=== PATIENT | male | born 1970 | race Caucasian/White ===

== ENCOUNTER 2019-02-28 10:06 | Inpatient (IN) ==
[2019-02-28 10:40] LABS: Bilirubin,Urine Negative (Negative); Blood,Urine Negative (Negative); Clarity,Urine Clear (Clear); Color,Urine Yellow (Yellow); Glucose,Urine (UA) Normal (Normal); Ketones,Urine Negative (Negative); Leukocyte Esterase,Urine Negative (Negative); Nitrite,Urine Negative (Negative); PH,Urine 6.5 pH Units (5.0-8.0); Protein,Urine Negative (Neg-Trace); Specific Gravity,Urine 1.011 (1.010-1.025); Urobilinogen,Urine Normal (Normal)
[2019-02-28 10:45] LABS: Basophils % 0.1 %; Eosinophils % 0.6 %; Hemoglobin 12.8 g/dL (12.9-16.9); Immature Granulocytes % 0.1 % (0-4); Lymphocytes # 0.6 K/mcL (0.6-4.6); Lymphocytes % 9.1 %; Mean Corpuscular HGB Conc 34.6 g/dL (31.6-35.5); Mean Corpuscular Hemoglobin 30.6 pg (28.0-33.3); Mean Corpuscular Volume 88.5 fL (83.0-100.0); Mean Platelet Volume 9.1 fL (9.4-12.4); Monocytes # 0.5 K/mcL (0.0-1.3); Monocytes % 7.8 %; Neutrophils # 5.7 K/mcL (1.6-8.9); Platelet Count 185 K/mcL (140-400); Red Blood Count 4.18 M/mcL (4.19-5.50); Red Cell Distribution Width 11.8 % (11.5-14.5); Segmented Neutrophils % 82.3 %; White Blood Count 6.9 K/mcL (4.3-11.1)
--- NOTE | 2019-02-28 10:47 | Emergency Department Note ---
Disposition Clinical Impression: Unable to ambulate Phalanx fracture, foot Qualifiers: Encounter type: initial encounter Toe: great toe Fracture type: closed Phalanx: proximal Fracture alignment: nondisplaced Laterality: left Qualified Code(s): S92.415A - Nondisplaced fracture of proximal phalanx of left great toe, initial encounter for closed fracture Metacarpal bone fracture Qualifiers: Encounter type: initial encounter Metacarpal bone: fifth Fracture type: closed Metacarpal location: shaft Fracture alignment: nondisplaced Laterality: left Qualified Code(s): S62.357A - Nondisplaced fracture of shaft of fifth metacarpal bone, left hand, initial encounter for closed fracture Disposition: Admitted As Inpatient Condition: Good Time of Disposition: 12:08 General Adult HPI - General Stated complaint: fall Time Seen by Provider: 02/28/19 10:08 Source: patient, EMS Mode of arrival: EMS Limitations: no limitations Nursing Notes Reviewed: Yes Vital Signs Reviewed: Yes - History of Present Illness HPI Narrative: 49M with DD that reportedly fell down the stairs yesterday when he arrived at his mother's house for a weekend visit. He fell down approximately 12 stairs as his mother found him at the bottom of the stairs. Then this morning he had a seizure while he was on the toilet. He is now complaining of left wrist pain and has some blood around the corner of his left eye. His mother states that it is not unusual for him to have seizures, even though he is on medication to prevent them. She denies any vomiting. He is not very verbal and cannot state whether or not he is nauseated. He can answer "ow" when you palpate something that hurts. Pain Scale: 5 - Related Data Home Medications Medication Instructions Recorded Confirmed Aspirin [Lo-Dose Aspirin EC] 81 mg PO DAILY 11/05/18 02/28/19 Atorvastatin [Lipitor] 40 mg PO DAILY@1600 11/05/18 02/28/19 Brivaracetam [Briviact] 50 mg PO BID 11/05/18 02/28/19 Cannabidiol (Cbd) Extract 10.4 ml PO BID 11/05/18 02/28/19 [Epidiolex] Cholecalciferol (D-3) [Vitamin D] 1 tab PO HS 11/05/18 02/28/19 Clobazam [Onfi] 10 mg PO BID 11/05/18 02/28/19 Diazepam [Diastat Acudial] 1 each RC DAILY PRN MDD 1 11/05/18 02/28/19 Docusate Sodium [Stool Softener] 100 mg PO BID 11/05/18 02/28/19 HydrOXYzine Pamoate [Vistaril] 25 mg PO BID 11/05/18 02/28/19 Lacosamide [Vimpat] 200 mg PO BID 11/05/18 02/28/19 Lisinopril [Zestril] 20 mg PO DAILY 11/05/18 02/28/19 Loratadine [Allergy Relief] 10 mg PO DAILY 11/05/18 02/28/19 Magnet 1 each TP DAILY PRN MDD 1 11/05/18 02/28/19 Metoprolol Succinate [Toprol Xl] 25 mg PO DAILY 11/05/18 02/28/19 OLANZapine [Zyprexa] 15 mg PO 199911/05/18 02/28/19 Perphenazine [Trilafon] 2 mg PO DAILY 11/05/18 02/28/19 Tamsulosin 0.4 mg PO HS 11/05/18 02/28/19 Zonisamide [Zonegran] 400 mg PO 199911/05/18 02/28/19 raNITIdine HCl [Ranitidine HCl] 150 mg PO BID 11/05/18 02/28/19 Calcium Carbonate [Calcium] 500 mg PO DAILY 02/28/19 02/28/19 Montelukast [Singulair] 10 mg PO HS 02/28/19 02/28/19 Multivit with Iron,Hematinic 1 each PO 02/28/19 02/28/19 [[place]] Vitamin E 400 unit PO QAM 02/28/19 02/28/19 Allergies Allergy/AdvReac Type Severity Reaction Status Date / Time codeine Allergy Hives Verified 11/05/18 23:12 phenobarbital Allergy Hives Verified 11/05/18 23:12 IVP DYE Allergy Hives Uncoded 11/05/18 23:12 Limitations: ROS unobtainable due to patients medical condition Past Medical History - Past Medical History Attestation: Yes The following information was validated with the patient. Medical history: Reports: diabetes, GERD, hyperlipidemia, hypertension, seizures, other Surgical history: Reports: other Psychiatric history: Reports: anxiety, bipolar, depression, other - Social History Smoking Status: Never smoker Smokeless Tobacco Status: No Alcohol use: Reports: none Drug use: Reports: none Physical Exam GENERAL: Well developed, well nourished. Non-verbal. In no acute distress. SKIN: Warm and well perfused. Bruising noted over left fifth digit. HEAD: Atraumatic, normocephalic without edema, discoloration or evidence of trauma. Facial bones without deformities or tenderness. EYES: PERRL. No scleral icterus or conjunctival injection. No diplopia. No proptosis or enophthalmos. EARS: Normal appearing pinnae. No hemotympanum. NOSE: No discharge, tenderness, laxity. No nasal septal hematoma. MOUTH: No malocclusion or trismus. Moist mucus membranes without blood. Posterior pharynx without erythema or exudate. NECK: Trachea midline. No discolorations or edema. Neck immobilized in cervical collar. CV: Regular rate and rhythm, Normal s1 and s2. No murmurs, rubs, or gallops. PV: Radial pulses 2+ bilaterally and symmetric. Dorsalis pedis pulses 2+ bilaterally and symmetric. 2+ capillary refill. Left foot edema with intact pulses. CHEST: No abrasions or ecchymosis. Chest symmetric with respirations. No chest wall tenderness. No crepitus. No step offs. Lungs are clear to auscultation bilaterally. No rales, rhonchi, wheezing or stridor. ABDOMEN: No ecchymosis or abrasions. Soft, nondistended, nontender. Bowel tones normoactive. No masses or organomegaly. BACK: No abrasions, skin openings, or ecchymosis. Spine without bony tenderness, no step offs. PELVIC: Pelvis stable, nontender to lateral compression and palpation of sy mphysis pubis. MSK: No gross deformities or discolorations or lesions. Tenderness with passive ROM to left hand and left foot. NEURO: :Pt awake and alert and at mental baseline according to family at bedside. - General General appearance: alert, in no apparent distress Course Vital Signs Temperature 98.0 F 02/28/19 10:14 Pulse Rate 102 02/28/19 10:14 Respiratory Rate 20 02/28/19 10:14 Blood Pressure 156/101 02/28/19 10:14 O2 Sat by Pulse Oximetry 99 02/28/19 10:14 Temperature 98.0 F 02/28/19 10:14 Pulse Rate 102 02/28/19 10:14 Respiratory Rate 20 02/28/19 10:14 Blood Pressure 156/101 02/28/19 10:14 O2 Sat by Pulse Oximetry 99 02/28/19 10:14 Oxygen Delivery Oxygen Delivery Room Air Medical Decision Making - MDM Narrative Medical decision making narrative: 49-year-old male with MRDD it is mostly nonverbal that fell down 12 stairs yesterday and then had a seizure on the toilet this morning and fell off the toilet. He is now complaining of left pain of his wrist with manipulation, and left foot pain when the foot is manipulative. We will obtain imaging. Imaging shows a fracture of the left great toe, nondisplaced. Additionally there appears to be a fracture of the fifth left metacarpal through the proximal phalanx. Patient will be placed in an ulnar gutter splint and a fracture shoe. Patient will get a refill follow-up. Patient is having difficulty ambulating and so will be made nonweightbearing until evaluated by orthopedics. Mother attempted to have the patient sent back to his long term as she has multiple stairs that lead to her home however the long term was unable to accommodate an early return for him. Mother cannot take care of him if he were to return home. Patient not safe to go home at this time. Patient was admitted to the hospitalist Dr. Greenfield who agrees to accept the patient to his service. Results of the workup including any imaging and/or labwork was shared with the family at bedside. Family was given an opportunity to ask questions at bedside and all of their concerns were addressed. Family verbalized understanding and agreement with plan of care. Pt remained stable while in the department. - Medical Records Medical records reviewed: Yes I reviewed the patient's medical records. - Lab Data Lab results reviewed: Yes I reviewed the patient's lab results. Result diagrams: 02/28/19 10:24 02/28/19 10:24 Lab Results 02/28/19 02/28/19 02/28/19 Range/Units 10:24 10:24 10:31 WBC 6.9 (4.3-11.1) K/mcL RBC 4.18 L (4.19-5.50) M/mcL Hgb 12.8 L (12.9-16.9) g/dL Hct 37.0 L (37.5-50.1) % MCV 88.5 (83.0-100.0) fL MCH 30.6 (28.0-33.3) pg MCHC 34.6 (31.6-35.5) g/dL RDW 11.8 (11.5-14.5) % Plt Count 185 (140-400) K/mcL MPV 9.1 L (9.4-12.4) fL Immature Gran % 0.1 (0-4) % Seg Neutrophils % 82.3 % Lymphocytes % 9.1 % Monocytes % 7.8 % Eosinophils % 0.6 % Basophils % 0.1 % Neutrophils # 5.7 (1.6-8.9) K/mcL Lymphocytes # 0.6 (0.6-4.6) K/mcL Monocytes # 0.5 (0.0-1.3) K/mcL Eosinophils # 0.0 (0.0-0.6) K/mcL Basophils # 0.0 (0.0-0.2) K/mcL Sodium 138 (136-145) mEq/L Potassium 3.6 (3.5-5.1) mEq/L Chloride 104 (98-107) mEq/L Carbon Dioxide 25 (23-29) mEq/L BUN 11 (6-20) mg/dL Creatinine 0.90 (0.70-1.30) mg/dL Est GFR ( Amer) > 60 (> 60) Est GFR (Non-Af Amer) > 60 (> 60) BUN/Creatinine Ratio 12 (6-26) Glucose 188 H (70-105) mg/dL Calculated Osmolality 290 (280-300) Calcium 9.4 (8.6-10.3) mg/dL Urine Color Yellow (Yellow) Urine Clarity Clear (Clear) Urine pH 6.5 (5.0-8.0) pH Units Ur Specific [place] 1.011 (1.010-1.025) Urine Protein Negative (Neg-Trace) mg/dL Urine Glucose (UA) Normal (Normal) mg/dL Urine Ketones Negative (Negative) mg/dL Urine Blood Negative (Negative) Urine Nitrite Negative (Negative) Urine Bilirubin Negative (Negative) Urine Urobilinogen Normal (Normal) mg/dL Ur Leukocyte Esterase Negative (Negative) Ur Culture Indicated? NO (NO) - Radiology Data Radiology results reviewed: Yes I reviewed the patient's radiology results. Cervical Spine CT 02/28/19 10:10 IMPRESSION: No acute osseous abnormality of the cervical spine. D/ / Tariq Person MD / Tariq Person MD Interpreting Provider: Tariq Person MD Chest X-Ray 02/28/19 10:10 IMPRESSION: No acute process. D/ / 02/28/2019 11:11:56 Tariq Person MD / earnold Interpreting Provider: Tariq Person MD Head CT 02/28/19 10:10 IMPRESSION: No acute intracranial abnormality. D/ / Tariq Person MD / Tariq Person MD Interpreting Provider: Tariq Person MD Pelvis X-Ray 02/28/19 10:10 IMPRESSION: No acute osseous abnormality. D/ / Tariq Person MD / Tariq Person MD Interpreting Provider: Tariq Person MD Ankle X-Ray 02/28/19 10:12 IMPRESSION: Left ankle: 1. No acute osseous abnormality. 2. Soft tissue swelling, more pronounced laterally. Left foot: 1. Under subtle lucency through the 1st proximal phalanx suspicious for nondisplaced fracture. 2. Dorsal foot soft tissue swelling. D/ / Rubio Hoffman MD / Rubio Hoffman MD Interpreting Provider: Rubio Hoffman MD Foot X-Ray 02/28/19 10:12 IMPRESSION: Left ankle: 1. No acute osseous abnormality. 2. Soft tissue swelling, more pronounced laterally. Left foot: 1. Under subtle lucency through the 1st proximal phalanx suspicious for nondisplaced fracture. 2. Dorsal foot soft tissue swelling. D/ / Rubio Hoffman MD / Rubio Hoffman MD Interpreting Provider: Rubio Hoffman MD Forearm X-Ray 02/28/19 10:12 IMPRESSION: No acute osseous abnormality. D/ / Tariq Person MD / Tariq Person MD Interpreting Provider: Tariq Person MD Hand X-Ray 02/28/19 10:12 IMPRESSION: No acute fracture or dislocation. Suspected vascular channel, 5th mid metacarpal diaphysis. D/ / 02/28/2019 11:12:53 Tariq Person MD / earnoyaakov Interpreting Provider: Tariq Person MD Wrist X-Ray 02/28/19 10:12 IMPRESSION: No acute fracture or dislocation. D/ / 02/28/2019 11:13:31 Tariq Person MD / earnold Interpreting Provider: Tariq Person MD Face CT 02/28/19 10:13 IMPRESSION: Left periorbital and left facial soft tissue contusion. No maxillofacial fracture or dislocation. D/ / Rubio Hoffman MD / Rubio Hoffman MD Interpreting Provider: Rubio Hoffman MD Attestation Statement - Attestation Attestation: I, Feroz Blount, examined this patient and my medical decision-making was reviewed with the WINEMAKER/PA/Advanced Practice Nurse/Resident Physician. I agree with the documented findings, disposition and treatment plan as described except to the extent set forth below. 49-year-old male presents emergency Department with concerns of a fall at home. Patient is usually a long term resident, he said spends the weekends with his mother however. Last night, the patient was walking into his arms house and fell down multiple stairs. He has had difficulty ambulating since that time. He is brought in for further care and evaluation. Mother states he has a long history of seizures and she is uncertain if he may have had a seizure prior to the fall. Patient has a difficult time giving history regarding his case and presentation secondary to his baseline mental status. CT of the head did not show evidence of intracranial hemorrhage or fracture. Patient has possible fractures of the left foot which has increased edema to the left ankle on exam compared to the right. Patient also has tenderness to palpation of the left hand. X-ray shows what could be a nutritional foramen however with the patient's pain he was placed into a on a gutter splint for further evaluation. He is unable to go home with his mother because of the stairs and he is unable to go to the long term secondary to a lack of workers being a holiday weekend. Return to see if they could call somebody and however there is nobody available. Patient will be admitted for further care and observation.
[2019-02-28 10:53] LABS: BUN/Creatinine Ratio 12 (6-26); Blood Urea Nitrogen 11 mg/dL (6-20); Calcium 9.4 mg/dL (8.6-10.3); Carbon Dioxide 25 mEq/L (23-29); Chloride 104 mEq/L (98-107); Glucose 188 mg/dL (70-105); Osmolality,Calculated 290 (280-300); Potassium 3.6 mEq/L (3.5-5.1); Sodium 138 mEq/L (136-145); eGFR For African Americans > 60 (> 60); eGFR For Non-African Americans > 60 (> 60)
[2019-02-28] MEDS ORDERED: Ondansetron 4 MG/2 ML VIAL IVP PRN (14:10)
[2019-02-28] MEDS ORDERED: traMADol 50 MG TABLET PO PRN (14:10)
[2019-02-28] MEDS ORDERED: Naloxone 0.4 MG/ML INJ IVP PRN (14:10)
--- NOTE | 2019-02-28 14:21 | Internal Med History&Physical ---
Date of Encounter: 02/28/19 Time of Encounter: 13:45 Internal Medicine - H&P: HPI Admitted From: Emergency Dept Plans for Post Hospital Care: Transfer Inp Rehab Fac History of present illness: Mr. Sandra is a 49 year old male with a history of seizures since age 5 status post vagal nerve stimulator, diabetes, hypertension and GERD who was brought into the ED to be evaluated status post fall by his mother. His mother Dayanara temporary status [phone] stated his guardian is his sister Tracy she can be arranged at [phone]. Dayanara the patient's mother stated that he lives in a prison and come home to her apartment on the weekends. She stated that when yesterday he came home for the routine weekend stay, she was talking to the prison personnel who dropped off the patient while Mr. Sandra proceeded along to her downstairs apartment. It appears the patient fell while going down the steps of about 12. The patient cannot really provide any history regarding his fall given that he is years of persistent seizures since age 5 has made the patient developmentally delayed. He could not call from any prodrome prior to the fall, his mom did not witness the fall but she maintains that it was a mechanical fall. She also stated that patient of late has been having sudden falls which she described as he was going down and attributes this to him having frequent seizures. She stated the patient typically has generalized tonic- clonic seizures and that his medications have been constantly been adjusted since started and recently was started on CBD oil which according to the mother has reduced the frequency of his seizures but also now the patient is having small atypical seizures of being atonic. When asked with this frequency of seizures and new seizures if his neuroleptic medications have been maximized the patient's mother stated that he is established with the [facility] and that we should not attempt to adjust his antiseizure meds during this hospitalization. She wanted to let us know that he would have seizures during this hospital stay and she wanted us to use a magnet that came with his vagal n erve stimulator to terminate his seizures. Discussed at length with the patient's mother that we would not feel comfortable manipulating his vagal nerve stimulator since we do not have expertise but rather if he has seizures we will treat him accordingly with medications for active seizures. She was reluctant as such discussed with Mrs. Dayanara that we could as well transferred the patient still [facility] since he is already established there, she declined stating that she cannot drive to [place] and will still like to spend the weekend with her son as such she said not to transfer to [place]. Overall patient had several imaging modality workup at the ED including a face CT, CT of the cervical spine, chest x-ray radiograph of left arm and wrist radiograph of the left foot ankle and pelvic x-ray. There is concern is of possible fracture of the left great toe nondisplaced as well as the 5th left metacarpal through the proximal phalanx. Past Med Surg Social Fam HX - Past Medical History Medical history: diabetes, GERD, hyperlipidemia, hypertension, seizures, other Additional medical history: developmental delayed. sleep apnea, psoriasis Psychiatric history: anxiety, bipolar, depression, other - Past Surgical History Surgical History: other Additional surgical history: vagal nerver stimulator - Social History Smoking Status: Never smoker Smokeless Tobacco Status: No Alcohol use: none Drug use: none Internal Medicine - H&P: Meds Aspirin [Lo-Dose Aspirin EC] 81 mg PO DAILY 11/05/18 [History] Atorvastatin [Lipitor] 40 mg PO HS 11/05/18 [History] Brivaracetam [Briviact] 50 mg PO BID 11/05/18 [History] Cannabidiol (Cbd) Extract [Epidiolex] 10.4 ml PO BID 11/05/18 [History] Cholecalciferol (D-3) [Vitamin D] 1 tab PO DAILY 11/05/18 [History] Clobazam [Onfi] 20 mg PO DAILY 11/05/18 [History] Diazepam [Diastat Acudial] 1 each RC DAILY PRN MDD 1 11/05/18 [History] Docusate Sodium [Stool Softener] 100 mg PO BID 11/05/18 [History] HydrOXYzine Pamoate [Vistaril] 25 mg PO BID 11/05/18 [History] Lacosamide [Vimpat] 300 mg PO BID 11/05/18 [History] Lisinopril [Zestril] 20 mg PO DAILY 11/05/18 [History] Loratadine [Allergy Relief] 10 mg PO DAILY 11/05/18 [History] Magnet 1 each TP DAILY PRN MDD 1 11/05/18 [History] Metoprolol Succinate [Toprol Xl] 25 mg PO DAILY 11/05/18 [History] OLANZapine [Zyprexa] 15 mg PO 199911/05/18 [History] Perphenazine [Trilafon] 2 mg PO DAILY 11/05/18 [History] Tamsulosin 0.4 mg PO DAILY 11/05/18 [History] Thera-M 1 tab PO DAILY 11/05/18 [History] Zonisamide [Zonegran] 400 mg PO 199911/05/18 [History] raNITIdine HCl [Ranitidine HCl] 150 mg PO BID 11/05/18 [History] Lidocaine Patch [Lidoderm 5% patch] 1 each TP DAILY #10 adh..patch 12/29/18 [Rx] Medicinal Marijuana 02/28/19 [History] Allergy/AdvReac Type Severity Reaction Status Date / Time codeine Allergy Hives Verified 11/05/18 23:12 phenobarbital Allergy Hives Verified 11/05/18 23:12 IVP DYE Allergy Hives Uncoded 11/05/18 23:12 All Systems PM: A 10-system review of systems was performed and is negative for pertinent findings except as documented above in the HPI. Review of systems: GENERAL: Denies fever, chills, fatigue or night sweats. DERMATOLOGIC: Denies itch, rash or lesions HEENT: Denies headache, blurriness, diplopia or decreased visual acuity, ear pain, tinnitus, rhinorrhea, sinus tenderness or sore throat RESPIRATORY: Denies SOB, cough, hemoptysis or pleuritic chest pain CARDIOVASCULAR: Denies chest pain, LE edema, palpitation or syncope GASTRO INTESTINAL: Denies cramps, nausea/vomiting, diarrhea or constipation, melena MUSCULOSKELATAL: Reports left arm and leg pain PSYCH: Denies worsening anxiety, or depression NEURO: Denies vertigo, dizziness, or ataxia . Reports a history of seizures GENITURINARY: Denies dysuria, nocturia or urinary incontinence - Constitutional Vitals: Temp Pulse Resp BP Pulse Ox 98.0 F 102 20 156/101 99 02/28/19 10:14 02/28/19 10:14 02/28/19 10:14 02/28/19 10:14 02/28/19 10:14 Exam: GENERAL: Somewhat somnolent male laying comfortably in the ED bed mother at bedside SKIN: No skin lesions or rashes, non-jaundiced, held surgical scar noted i nferior to the left clavicle-palpable vagal stimulator EYES: EOMI, PERRLA, no sclera icterus, slight developing orbital ecchymosis noted the left eyelid HENT: Macrocephaly noted, frontal and maxillary sinus non-tender, normal hearing, oropharynx and mucosa dry but without any exudates NECK: No cervical lymphadenopathy, trachea midline, thyroid is palpable does not appear enlarged LUNGS: vesicular breath sounds, somewhat diminished clear to auscultation, no wheeze, rhonchi, rales or crackles. Non labored respirations HEART: Normal rate and rhythm, no murmurs or rubs ABDOMEN: Obese soft, non-tender, non-distended, bowel sounds x 4 normoactive EXTRMITIES: Left arm wrapped in Herb, left lower extremity unna amaya noted, NEURO: Speech and comprehension appears intact. PSYCH: Cooperative, non- anxious or irritable, mood and affect is appropriate Internal Med - H&P Results - Labs CBC & Chem 7: 02/28/19 10:24 02/28/19 10:24 Labs: Short CBC 02/28/19 Range/Units 10:24 WBC 6.9 (4.3-11.1) K/mcL Hgb 12.8 L (12.9-16.9) g/dL Hct 37.0 L (37.5-50.1) % Plt Count 185 (140-400) K/mcL Neutrophils # 5.7 (1.6-8.9) K/mcL BMP 02/28/19 10:24 Sodium 138 Potassium 3.6 Chloride 104 Carbon Dioxide 25 BUN 11 Creatinine 0.90 Glucose 188 H Calcium 9.4 Urine 02/28/19 Range/Units 10:31 Urine Color Yellow (Yellow) Urine Clarity Clear (Clear) Urine pH 6.5 (5.0-8.0) pH Units Ur Specific [place] 1.011 (1.010-1.025) Urine Protein Negative (Neg-Trace) mg/dL Urine Glucose (UA) Normal (Normal) mg/dL - Impressions ITS Impressions Cervical Spine CT 02/28/19 10:10 IMPRESSION: No acute osseous abnormality of the cervical spine. D/ / Tariq Person MD / Tariq Person MD Interpreting Provider: Tariq Person MD Chest X-Ray 02/28/19 10:10 IMPRESSION: No acute process. D/ / 02/28/2019 11:11:56 Tariq Person MD / earnold Interpreting Provider: Tariq Person MD Head CT 02/28/19 10:10 IMPRESSION: No acute intracranial abnormality. D/ / Tariq Person MD / Tariq Person MD Interpreting Provider: Tariq Person MD Pelvis X-Ray 02/28/19 10:10 IMPRESSION: No acute osseous abnormality. D/ / Tariq Person MD / Tariq Person MD Interpreting Provider: Tariq Person MD Ankle X-Ray 02/28/19 10:12 IMPRESSION: Left ankle: 1. No acute osseous abnormality. 2. Soft tissue swelling, more pronounced laterally. Left foot: 1. Under subtle lucency through the 1st proximal phalanx suspicious for nondisplaced fracture. 2. Dorsal foot soft tissue swelling. D/ / Rubio Hoffman MD / Rubio Hoffman MD Interpreting Provider: Rubio Hoffman MD Foot X-Ray 02/28/19 10:12 IMPRESSION: Left ankle: 1. No acute osseous abnormality. 2. Soft tissue swelling, more pronounced laterally. Left foot: 1. Under subtle lucency through the 1st proximal phalanx suspicious for nondisplaced fracture. 2. Dorsal foot soft tissue swelling. D/ / Rubio Hoffman MD / Rubio Hoffman MD Interpreting Provider: Rubio Hoffman MD Forearm X-Ray 02/28/19 10:12 IMPRESSION: No acute osseous abnormality. D/ / Tariq Person MD / Tariq Person MD Interpreting Provider: Tariq Person MD Hand X-Ray 02/28/19 10:12 IMPRESSION: No acute fracture or dislocation. Suspected vascular channel, 5th mid metacarpal diaphysis. D/ / 02/28/2019 11:12:53 Tariq Person MD / malachi Interpreting Provider: Tariq Person MD Wrist X-Ray 02/28/19 10:12 IMPRESSION: No acute fracture or dislocation. D/ / 02/28/2019 11:13:31 Tariq Person MD / malachi Interpreting Provider: Tariq Person MD Face CT 02/28/19 10:13 IMPRESSION: Left periorbital and left facial soft tissue contusion. No maxillofacial fracture or dislocation. D/ / Rubio Hoffman MD / Rubio Hoffman MD Interpreting Provider: Rubio Hoffman MD - Assessment and Plan (1) History of fall Current Visit: Yes Status: Acute Assessment and plan: Etiology of his fall still remains unclear, mother claims it was a mechanical fall but she has a stated that he has been having what she describes as the patient becoming atonic and frequent fall since started on CBD oil, patient did suffer some contusion to his face evident on CT of the face, CT of the cervical spine was unremarkable. No head CT was done at the ED will send patient for a head CT given that an MRI cannot be done given his vagal nerve stimulator to help delineate any intracranial abnormality (2) Phalanx fracture, foot Current Visit: Yes Status: Acute Assessment and plan: Orthopedic consult was ordered at the ED patient has an unna boot, patient has quite a large frame would likely need a 2 person assist if he is nonweightbearing as such discussed with his mother that he might need placement at an ECF for rehabilitation and nursing needs Qualifiers: Encounter type: initial encounter Toe: great toe Fracture type: closed Phalanx: proximal Fracture alignment: nondisplaced Laterality: left Qualified Code(s): S92.415A - Nondisplaced fracture of proximal phalanx of left great toe, initial encounter for closed fracture (3) Generalized seizures Current Visit: Yes Status: Acute Assessment and plan: Patient with seizures since age 5 continues to have seizures while on antiseizure medication per his mom. She stated that his medications have been tweaked over the years and that he recently added CBD on oil and patient has reverted from tonic-clonic seizures to now what she describes as atonic seizur es-patient going limp and slumped to the ground. She maintains that we should not adjust his seizure medications given at his already established at [facility] but she also does not want him transferred to [place] because she cannot drive to [place] in [place] but would still like to spend the weekend with her son. She wants the staff here to know that during his hospital stay he would have seizures as such she wanted to bring his magnets for also manipulative his vagal nerve stimulator. When she was told that this was not feasible given that the staff will not be comfortable manipulative his vagal nerve stimulator and that we should try to transfer [place] she said no. D iscussed with Dayanara the patient's mom will place him on seizure protocol and that will treat any active seizures with lorazepam and Keppra IV on interim she was reluctant but agreed to treatment plan. We will consult neurology for input (4) Diabetes Current Visit: Yes Status: Acute Assessment and plan: Although he is not on any diabetic medication review of his problem list does have diabetes we will obtain A1c and place on insulin per protocol Qualifiers: Diabetes mellitus type: type 2 Diabetes mellitus intermediate card tender insulin use: without fdc use Diabetes mellitus complication status: without complication Qualified Code(s): E11.9 - Type 2 diabetes mellitus without complications (5) Hypertension Current Visit: Yes Status: Acute Assessment and plan: We will continue lisinopril and Toprol Qualifiers: Hypertension type: essential hypertension Qualified Code(s): I10 - Essential (primary) hypertension (6) GERD (gastroesophageal reflux disease) Current Visit: Yes Status: Acute Assessment and plan: Continue ranitidine Qualifiers: Esophagitis presence: esophagitis presence not specified Qualified Code(s): K21.9 - Gastro-esophageal reflux disease without esophagitis (7) DVT prophylaxis Current Visit: Yes Status: Acute Assessment and plan: Heparin per protocol - Time Spent With Patient Total time spent is greater than 50% in coordination of care (as documented) at patient's floor/unit and/or counseling patient:
[2019-02-28] MEDS ORDERED: *HR* Dextrose 50 % in Water (Syg) 50 ML SYRINGE IVP PRN (14:23)
[2019-02-28] MEDS ORDERED: D5% in Water 1,000 ML IVC PRN (14:23)
[2019-02-28] MEDS ORDERED: Dextrose Gel 15 GM/37.5 ML TUBE PO PRN ×2 (14:23)
[2019-02-28] MEDS: *HR* OxyCODONE Immed Rel 5 MG TABLET PO PRN ×2 (14:40→23:43)
[2019-02-28] MEDS ORDERED: *HR* LORazepam 2 MG/ML VIAL IVP PRN (15:15)
[2019-02-28] MEDS: Insulin LISPRO 300 UNITS/3 ML VIAL SQ SCH ×2 (17:38→17:39)
[2019-02-28] MEDS ORDERED: Insulin DETEMIR 100 UNIT/ML X5UNITS SQ SCH (21:00)
[2019-02-28] MEDS: OLANZapine 10 MG TAB.RAPDIS PO SCH (22:14)
[2019-02-28] MEDS: CANNABIDIOL PO SCH (22:14)
[2019-02-28] MEDS: *HR* Heparin 5,000 UNIT/ML VIAL SQ SCH (22:15)
[2019-02-28] MEDS: Cholecalciferol (D-3) 1,000 UNIT (25MCG) TABLET PO SCH (22:15)
[2019-02-28] MEDS: hydrOXYzine pamoate 25 MG CAPSULE PO SCH (22:15)
[2019-02-28] MEDS: BRIVARACETAM 50 MG PO SCH (22:16)
[2019-02-28] MEDS: CLOBAZAM 10 MG PO SCH (22:16)
[2019-03-01 05:50] LABS: Basophils % 0.3 %; Eosinophils # 0.2 K/mcL (0.0-0.6); Eosinophils % 3.3 %; Hematocrit 36.8 % (37.5-50.1); Hemoglobin 12.5 g/dL (12.9-16.9); Immature Granulocytes % 0.3 % (0-4); Lymphocytes # 1.3 K/mcL (0.6-4.6); Lymphocytes % 21.7 %; Mean Corpuscular Volume 88.5 fL (83.0-100.0); Mean Platelet Volume 9.3 fL (9.4-12.4); Monocytes # 0.8 K/mcL (0.0-1.3); Monocytes % 13.7 %; Neutrophils # 3.7 K/mcL (1.6-8.9); Platelet Count 172 K/mcL (140-400); Red Blood Count 4.16 M/mcL (4.19-5.50); Red Cell Distribution Width 11.9 % (11.5-14.5); Segmented Neutrophils % 60.7 %; White Blood Count 6.1 K/mcL (4.3-11.1)
[2019-03-01 06:13] LABS: BUN/Creatinine Ratio 11 (6-26); Blood Urea Nitrogen 12 mg/dL (6-20); Calcium 9.5 mg/dL (8.6-10.3); Carbon Dioxide 21 mEq/L (23-29); Chloride 106 mEq/L (98-107); Glucose 106 mg/dL (70-105); Magnesium 1.9 mg/dL (1.6-2.6); Osmolality,Calculated 286 (280-300); Potassium 3.8 mEq/L (3.5-5.1); Sodium 138 mEq/L (136-145); eGFR For African Americans > 60 (> 60); eGFR For Non-African Americans > 60 (> 60)
[2019-03-01] MEDS: *HR* Heparin 5,000 UNIT/ML VIAL SQ SCH ×3 (06:18→21:15)
[2019-03-01 06:22] LABS: Estimated Average Glucose 105 mg/dl
[2019-03-01 06:25] LABS: Thyroid Stimulating Hormone 2.239 mcIU/mL (0.340-5.600)
[2019-03-01] MEDS: Insulin LISPRO 300 UNITS/3 ML VIAL SQ SCH ×6 (09:53→16:56)
[2019-03-01] MEDS: Vitamin E 200 UNIT (90MG) CAPSULE PO SCH (09:54)
[2019-03-01] MEDS: Metoprolol XL (24 HR) Succ 25 MG TAB.ER.24H PO SCH (09:55)
[2019-03-01] MEDS: Aspirin Enteric Coated 81 MG Tablet PO SCH (09:55)
[2019-03-01] MEDS: Perphenazine 2 MG TABLET PO SCH (09:55)
[2019-03-01] MEDS: Loratadine 10 MG TABLET PO SCH (09:55)
[2019-03-01] MEDS: hydrOXYzine pamoate 25 MG CAPSULE PO SCH ×2 (09:55→21:14)
[2019-03-01] MEDS: Lisinopril 20 MG TABLET PO SCH (09:55)
[2019-03-01] MEDS: BRIVARACETAM 50 MG PO SCH ×2 (09:56→21:15)
[2019-03-01] MEDS: CLOBAZAM 10 MG PO SCH ×2 (09:56→21:15)
[2019-03-01] MEDS: CANNABIDIOL PO SCH ×2 (09:57→21:00)
[2019-03-01] MEDS: *HR* OxyCODONE Immed Rel 5 MG TABLET PO PRN (10:31)
--- NOTE | 2019-03-01 10:45 | Neurology - Consult Note ---
Date of Encounter: 03/01/19 Time of Encounter: 10:36 Assessment and Plan (1) Catalino-Gastaut syndrome, intractable, without status epilepticus Current Visit: Yes Status: Acute Patient with a known history of Independence-Gastaut syndrome, status post vagus nerve stimulation placement currently on multiple antiepileptic agents including Vimpat, Keppra, Clobazam, as well as CBD oil. Patient continues to have breakthrough seizures especially atonic seizures resulting in frequent falling. This may be related to the recent addition of CBD oil, for which adjustment of dosage of the medication may be needed. This would be best accomplished with his primary neurologist at [facility]. At this time, would recommend continuing medical and supportive care and observation and treat seizures on as-needed basis. Patient may not be able to get CBD oil treatment here at [facility]. Treatment plan discussed with the elpidio boyer's mother and all questions answered. History of Present Illness Chief complaint: fall HPI: Mr. Sandra is a 49 year old male with past medical history significant for Independence- Gastaut syndrome, MRDD, BPH, hypertension, bipolar disorder, GERD, status post vagus nerve stimulation placement who developed a fall at home. Neurology was consulted due to the patient's history of intractable epilepsy, status post vagus nerve stimulation placement. Patient is interviewed in the presence of his mother. Patient has MRDD and history of Independence-Gastaut syndrome. Patient has a history of intractable epilepsy and eventually had vagus nerve stimulation placement placed. Patient has been evaluated and treated with his primary neurologist at [facility]. Patient has been taking multiple antiepileptic agents, including Vimpat, Keppra, Clobazam. Per his mother, patient used to have a mixed type of seizures include generalized tonic-clonic seizure, partial seizures as well as atonic seizures. Mother states that over t he last 1 year the patient was tried on CBD oil for the treatment of Independence Gastaut syndrome and during the process of finding the right dosage of CBD oil the patient was initially withdrawn some of his antiepileptic agents therefore there was a time that his seizures were temporarily worsened. Per his mother, he started having other type of seizures including atonic seizures that resulting in frequent falling. Mother states that the patient since to be doing better after started taking a smaller dose of CBD oil, for which the dye reaction of usage is still unknown. Otherwise the patient is hemodynamically stable and he is here essentially for observation. It is recommended that he should be treated as needed basis for breakthrough seizures. Discussed with the mother that we would not change his antiepileptic therapy while in the hospital. Patient's initial CT of the head reviewed and showed no acute intracranial abnormality. Past Med Surg Social Fam HX - Past Medical History Medical history: diabetes, GERD, hyperlipidemia, hypertension, seizures, other Additional medical history: developmental delayed. sleep apnea, psoriasis Psychiatric history: anxiety, bipolar, depression, other - Past Surgical History Surgical History: other Additional surgical history: vagal nerver stimulator - Social History Smoking Status: Never smoker Smokeless Tobacco Status: No Alcohol use: none Drug use: marijuana - Family History Mother Hx Family Cardiac Disorders: Yes Medications and Allergies Aspirin [Lo-Dose Aspirin EC] 81 mg PO DAILY 11/05/18 [History] Atorvastatin [Lipitor] 40 mg PO DAILY@1600 11/05/18 [History] Brivaracetam [Briviact] 50 mg PO BID 11/05/18 [History] Cannabidiol (Cbd) Extract [Epidiolex] 10.4 ml PO BID 11/05/18 [History] Cholecalciferol (D-3) [Vitamin D] 1 tab PO HS 11/05/18 [History] Clobazam [Onfi] 10 mg PO BID 11/05/18 [History] Diazepam [Diastat Acudial] 1 each RC DAILY PRN MDD 1 11/05/18 [History] Docusate Sodium [Stool Softener] 100 mg PO BID 11/05/18 [History] HydrOXYzine Pamoate [Vistaril] 25 mg PO BID 11/05/18 [History] Lacosamide [Vimpat] 200 mg PO BID 11/05/18 [History] Lisinopril [Zestril] 20 mg PO DAILY 11/05/18 [History] Loratadine [Allergy Relief] 10 mg PO DAILY 11/05/18 [History] Magnet 1 each TP DAILY PRN MDD 1 11/05/18 [History] Metoprolol Succinate [Toprol Xl] 25 mg PO DAILY 11/05/18 [History] OLANZapine [Zyprexa] 15 mg PO 2000 11/05/18 [History] Perphenazine [Trilafon] 2 mg PO DAILY 11/05/18 [History] Tamsulosin 0.4 mg PO HS 11/05/18 [History] Zonisamide [Zonegran] 400 mg PO 199911/05/18 [History] raNITIdine HCl [Ranitidine HCl] 150 mg PO BID 11/05/18 [History] Calcium Carbonate [Calcium] 500 mg PO DAILY 02/28/19 [History] Montelukast [Singulair] 10 mg PO HS 02/28/19 [History] Multivit with Iron,Hematinic [[place]] 1 each PO 02/28/19 [History] Vitamin E 400 unit PO QAM 02/28/19 [History] Allergy/AdvReac Type Severity Reaction Status Date / Time codeine Allergy Hives Verified 11/05/18 23:12 phenobarbital Allergy Hives Verified 11/05/18 23:12 IVP DYE Allergy Hives Uncoded 11/05/18 23:12 All Systems: The remainder of the systems were reviewed and are negative - Constitutional Constitutional ROS IM: as per HPI - Nose, Mouth, Throat Nose, mouth and throat: abnormal hearing (no) - Cardiovascular Cardiovascular ROS IM: chest pain (no), claudication (no) - Respiratory Respiratory IM: cough (no), hemoptysis (no) - Gastrointestinal Gastrointestinal: abdominal pain (no) - Genitourinary Genitourinary ROS: difficulty voiding (yes) - Musculoskeletal Musculoskeletal ROS IM: abnormal gait (yes) - Integumentary Integumentary IM: acne (no), alopecia (no), bleeding lesions (no) - Neurological Neurological ROS: abnormal gait, abnormal speech (yes), frequent falls (yes) Physical Examination - Vital Signs Vital Signs: Initial Vital Signs Temp Pulse Resp BP Pulse Ox 98.0 F 102 20 156/101 99 02/28/19 10:14 02/28/19 10:14 02/28/19 10:14 02/28/19 10:14 02/28/19 10:14 - Constitutional General appearance: chronically ill - Neurologic Sensorimotor examination: other (Unable to assess) Detailed motor examination: grossly full strength in all extremities Detailed sensory examination: other (Unable to assess) Posture: other (None) Reflex and gait examination: other (Gait not assessed) Reflexes: Biceps: 2+, Triceps: 2+, Brachioradialis: 2+, Patella: 2+, Achilles: 2+ Mental Status Examination: awake, alert, opens eyes to voice, opens eyes to noxious stimulation, makes eye contact, follows simple commands, inattentive Cranial nerve examination: PERRL, EOMI, visual orozco intact (Unable to assess), corneal reflexes brisk symmetrically, sensory to face intact, mastication intact, no facial asymmetry is present, no dysarthria (Patient is mute), hearing is intact symmetrically, soft palate elevates bilaterally upon phonation (Unable to assess), gag reflex intact, flexes SCM and trapezius muscles symmetrically with full power (Unable to assess), tongue protrudes midline (Unable to assess) Results - Laboratory Findings CBC and BMP: 03/01/19 05:39 03/01/19 05:39 Abnormal lab findings: Abnormal lab results RBC 4.16 M/mcL (4.19-5.50) L 03/01/19 05:39 Hgb 12.5 g/dL (12.9-16.9) L 03/01/19 05:39 Hct 36.8 % (37.5-50.1) L 03/01/19 05:39 MPV 9.3 fL (9.4-12.4) L 03/01/19 05:39 Carbon Dioxide 21 mEq/L (23-29) L 03/01/19 05:39 Glucose 106 mg/dL (70-105) H 03/01/19 05:39 POC Glucose 104 mg/dL (70-99) H 02/28/19 19:24 - Diagnostic Findings Additional findings: CT OF THE HEAD WITHOUT CONTRAST 02/28/2019 11:14 am TECHNIQUE: CT of the head was performed without the administration of intravenous contrast. Dose modulation, iterative reconstruction, and/or weight based adjustment of the mA/kV was utilized to reduce the radiation dose to as low as reasonably achievable. COMPARISON: 11/05/2018 HISTORY: ORDERING SYSTEM PROVIDED HISTORY: trauma Initial examination. Injury with pain. Status post fall. FINDINGS: BRAIN/VENTRICLES: There is no acute intracranial hemorrhage, mass effect or midline shift. No abnormal extra-axial fluid collection. The cristina-white differentiation is maintained without evidence of an acute infarct. There is no evidence of hydrocephalus. ORBITS: The visualized portion of the orbits demonstrate no acute abnormality. SINUSES: The visualized paranasal sinuses and mastoid air cells demonstrate no acute abnormality. SOFT TISSUES/SKULL: No acute abnormality of the visualized skull or soft tissues. CT/CT head/brain wo con IMPRESSION: No acute intracranial abnormality. D/ / Tariq Person MD / Tariq Person MD Interpreting Provider: Tariq Person MD OF THE CERVICAL SPINE WITHOUT CONTRAST 02/28/2019 11:14 am TECHNIQUE: CT of the cervical spine was performed without the administration of intravenous contrast. Multiplanar reformatted images are provided for review. Dose modulation, iterative reconstruction, and/or weight based adjustment of the mA/kV was utilized to reduce the radiation dose to as low as reasonably achievable. COMPARISON: 11/05/2018 HISTORY: ORDERING SYSTEM PROVIDED HISTORY: trauma Initial exam. FINDINGS: BONES/ALIGNMENT: There is no evidence of an acute cervical spine fracture. There is normal alignment of the cervical spine. DEGENERATIVE CHANGES: No significant degenerative changes. SOFT TISSUES: There is no prevertebral soft tissue swelling. CT/CT cervical spine wo con IMPRESSION: No acute osseous abnormality of the cervical spine. D/ / Tariq Person MD / Tariq Person MD Interpreting Provider: Tariq Person MD Consult Discharge Plan - Plan Referrals: Santa Niño MD [Primary Care Provider] -
--- NOTE | 2019-03-01 20:28 | Internal Med Progress Note ---
Hospitalist Progress Note - Encounter Date of Encounter: 03/01/19 Time of Encounter: 11:00 - Subjective Interval History: Mr Sandra was evaluated by the in-house neurologist. No documented seizures activity overnight. His mother was quite upset and tearful and frustrated because the patient could not receive the CBD oil. She was also concerned that he was hypersomnolent which she attributed to the pain medication but according to his nurse she was also upset while he was moaning in pain. Discussed again the treatment plan with the patient's mother stated that we could transfer him to [facility] since he is already established that she declined became tearful stated she has no means of transportation that had daughter took the only vehicle and she and have family went to [place] for the weekend. She was also worried about his urine output however the staff his bladder scan was negative - Exam Vitals: Temp Pulse Resp BP Pulse Ox 100.3 F H 94 16 127/81 95 03/01/19 19:45 03/01/19 19:45 03/01/19 19:45 03/01/19 19:45 03/01/19 19:45 Exam: GENERAL: Somewhat somnolent male, responds to questions somewhat but this is baseline mother at bedside SKIN: [place] warm acyanotic not jaundice HEART: RRR, no murmurs LUNGS: CTA no wheeze or crackles, overall non labored ABDOMEN; Soft, non tender or distended, BS x 4 normactive EXT: No LE edema, Pedal pulses 1+, radial pulses 2+ PSYCH: Mood and affect is appropriate - Assessment and Plan (1) Diabetes Current Visit: Yes Status: Acute Assessment and Plan: Although he is not on any diabetic medication review of his problem list does have diabetes we will obtain A1c 5.3. Patient is not diabetic we will discontinue insulin protocol (2) History of fall Current Visit: Yes Status: Acute Assessment and Plan: Etiology of his fall still remains unclear, mother claims it was a mechanical fall but she has a stated that he has been having what she describes as the patient becoming atonic and frequent fall since started on CBD oil, patient did suffer some contusion to his face evident on CT of the face, CT of the cervical spine was unremarkable. No head CT was done at the ED will send patient for a head CT given that an MRI cannot be done given his vagal nerve stimulator to help delineate any intracranial abnormality (3) Phalanx fracture, foot Current Visit: Yes Status: Acute Assessment and Plan: Orthopedic consult was ordered at the ED patient has an unna boot, patient has quite a large frame would likely need a 2 person assist if he is nonweightbearing as such discussed with his mother that he might need placement at an ECF for rehabilitation and nursing needs (4) Generalized seizures Current Visit: Yes Status: Acute Assessment and Plan: He was seen by the neurologist -history of Catalino-Gastaut syndrome recommended current management, appreciate neurology input Patient with seizures since age 5 continues to have seizures while on antiseizure medication per his mom. She stated that his medications have been tweaked over the years and that he recently added CBD on oil and patient has reverted from tonic-clonic seizures to now what she describes as atonic seizures-patient going limp and slumped to the ground. She maintains that we should not adjust his seizure medications given at his already established at [facility] but she also does not want him transferred to [facility] because she cannot drive to [facility] in [place] but would still like to spend the weekend with her son. She wants the staff here to know that during his hospital stay he would have seizures as such she wanted to bring his magnets for also manipulative his vagal nerve stimulator. When she was told that this was not feasible given that the staff will not be comfortable manipulative his vagal nerve stimulator and that we should try to transfer [facility] she said no. Discussed with Dayanara the patient's mom will place him on seizure protocol and that will treat any active seizures with lorazepam and Keppra IV on interim she was reluctant but agreed to treatment plan. We will consult neurology for input (5) Hypertension Current Visit: Yes Status: Acute Assessment and Plan: We will continue lisinopril and Toprol (6) GERD (gastroesophageal reflux disease) Current Visit: Yes Status: Acute Assessment and Plan: Continue ranitidine (7) DVT prophylaxis Current Visit: Yes Status: Acute Assessment and Plan: Heparin per protocol - Time Spent with Patient Total time spent is greater than 50% in coordination of care (as documented) at patient's floor/unit and/or counseling patient: Internal Medicine: Result - Labs CBC & Chem 7: 03/01/19 05:39 03/01/19 05:39 Labs: Short CBC 03/01/19 Range/Units 05:39 WBC 6.1 (4.3-11.1) K/mcL Hgb 12.5 L (12.9-16.9) g/dL Hct 36.8 L (37.5-50.1) % Plt Count 172 (140-400) K/mcL Neutrophils # 3.7 (1.6-8.9) K/mcL BMP 03/01/19 05:39 Sodium 138 Potassium 3.8 Chloride 106 Carbon Dioxide 21 L BUN 12 Creatinine 1.14 Glucose 106 H Calcium 9.5 - Impressions Impressions Chest X-Ray 02/28/19 10:10 IMPRESSION: No acute process. D/ / 02/28/2019 11:11:56 Tariq Person MD / malachi Interpreting Provider: Tariq Person MD Hand X-Ray 02/28/19 10:12 IMPRESSION: No acute fracture or dislocation. Suspected vascular channel, 5th mid metacarpal diaphysis. D/ / 02/28/2019 11:12:53 Tariq Person MD / malachi Interpreting Provider: Tariq Person MD Wrist X-Ray 02/28/19 10:12 IMPRESSION: No acute fracture or dislocation. D/ / 02/28/2019 11:13:31 Tariq Person MD / malachi Interpreting Provider: Tariq Person MD Consult Discharge Plan - Plan Referrals: Santa Niño MD [Primary Care Provider] - (1) Diabetes Qualifiers: Diabetes mellitus type: type 2 Diabetes mellitus terminal press operator insulin use: without terminal press operator use Diabetes mellitus complication status: without complication Qualified Code(s): E11.9 - Type 2 diabetes mellitus without complications (3) Phalanx fracture, foot Qualifiers: Encounter type: initial encounter Toe: great toe Fracture type: closed Phalanx: proximal Fracture alignment: nondisplaced Laterality: left Qualified Code(s): S92.415A - Nondisplaced fracture of proximal phalanx of left great toe, initial encounter for closed fracture (5) Hypertension Qualifiers: Hypertension type: essential hypertension Qualified Code(s): I10 - Essential (primary) hypertension (6) GERD (gastroesophageal reflux disease) Qualifiers: Esophagitis presence: esophagitis presence not specified Qualified Code(s): K21.9 - Gastro-esophageal reflux disease without esophagitis
[2019-03-01] MEDS: OLANZapine 10 MG TAB.RAPDIS PO SCH (21:14)
[2019-03-01] MEDS: Cholecalciferol (D-3) 1,000 UNIT (25MCG) TABLET PO SCH (21:14)
--- NOTE | 2019-03-01 21:56 | Orthopedic Consult Note ---
Date of Encounter: 03/01/19 Time of Encounter: 21:49 History of Present Illness Chief complaint: Left hand and left foot pain HPI: Mr. Sandra is a 49 year old [id number] male who sustained a injury to his left hand and his left foot in a fall at his mother's home yesterday. Patient states that he normally lives in a intermediate. He however was had his mother's home when he fell and sustained injuries to his left foot and his left hand. He was seen in the emergency room and had multiple x-rays taken. He is admitted for further evaluation and management of uncontrolled seizures. I reviewed the patient's completed history and physical examination reveals the completed medical record. Orthopedic examination shows a pleasant 49-year-old gentleman in no acute distress while lying in hospital bed. Examination of the left upper extremity reveals an unremarkable elbow. Forearm is likewise unremarkable. Wrist shows no limitations in motion nor tenderness. The patient does have point tenderness over the midshaft of the small metacarpal. There is mild basal joint crepitance. Examination of left ankle is unremarkable. Left foot is painful at the level of the first MTP joint. I have reviewed multiple x-rays. Pelvis AP x-ray reveals a hips to be intact and unremarkable. There is marked arthritic changes at the disc space between L4 and 5. X-rays of the left ankle show a questionable avulsion along the medial malleolus, this appears more chronic in nature. X-rays of the left foot reveals a nondisplaced intra-articular fracture of the base of the proximal phalanx left forearm x-rays are unremarkable that evidence of acute fractures or dislocations. Left wrist shows no evidence of fractures or dislocations. X- rays of the left hand reveal fairly advanced basal joint arthritic changes as well as arthritic changes at the thumb MCP especially the base of the proximal phalanx. The fifth metacarpal reveals a oblique type lucency consistent with fracture as this is a same location of the patient's pain. Impression: 1. Nondisplaced intra-articular fracture proximal phalanx left great toe 2. Nondisplaced fracture left fifth metacarpal Recommendation: I removed and replaced the splint on the left hand and would agree with his continued use to treat the metacarpal fracture at this time. Additionally I have removed and replaced the boot on the patient's foot and recommend discontinued use to treat the possible phalanx fracture. Nation can be weightbearing as tolerated on the left lower extremity. If needed a platform walker can be utilized if the assisted device as needed. These fractures should be treatable with continued conservative management. We will need follow-up with me in about 3-4 weeks' time. Thank you for allowing me to see and care for Mr. Sandra. Sincerely, Adolfo Gary,DO Past Med Surg Social Fam HX - Past Medical History Medical history: diabetes, GERD, hyperlipidemia, hypertension, seizures, other Additional medical history: developmental delayed. sleep apnea, psoriasis Psychiatric history: anxiety, bipolar, depression, other - Past Surgical History Surgical History: other Additional surgical history: vagal nerver stimulator - Social History Smoking Status: Never smoker Smokeless Tobacco Status: No Alcohol use: none Drug use: marijuana - Family History Mother Hx Family Cardiac Disorders: Yes Medications and Allergies Aspirin [Lo-Dose Aspirin EC] 81 mg PO DAILY 11/05/18 [History] Atorvastatin [Lipitor] 40 mg PO DAILY@1600 11/05/18 [History] Brivaracetam [Briviact] 50 mg PO BID 11/05/18 [History] Cannabidiol (Cbd) Extract [Epidiolex] 10.4 ml PO BID 11/05/18 [History] Cholecalciferol (D-3) [Vitamin D] 1 tab PO HS 11/05/18 [History] Clobazam [Onfi] 10 mg PO BID 11/05/18 [History] Diazepam [Diastat Acudial] 1 each RC DAILY PRN MDD 1 11/05/18 [History] Docusate Sodium [Stool Softener] 100 mg PO BID 11/05/18 [History] HydrOXYzine Pamoate [Vistaril] 25 mg PO BID 11/05/18 [History] Lacosamide [Vimpat] 200 mg PO BID 11/05/18 [History] Lisinopril [Zestril] 20 mg PO DAILY 11/05/18 [History] Loratadine [Allergy Relief] 10 mg PO DAILY 11/05/18 [History] [place] 1 each TP DAILY PRN MDD 1 11/05/18 [History] Metoprolol Succinate [Toprol Xl] 25 mg PO DAILY 11/05/18 [History] OLANZapine [Zyprexa] 15 mg PO 2000 19 [History] Perphenazine [Trilafon] 2 mg PO DAILY 11/05/18 [History] Tamsulosin 0.4 mg PO 11/05/18 [History] Zonisamide [Zonegran] 400 mg PO 199911/05/18 [History] raNITIdine HCl [Ranitidine HCl] 150 mg PO BID 11/05/18 [History] Calcium Carbonate [Calcium] 500 mg PO DAILY 02/28/19 [History] Montelukast [Singulair] 10 mg PO HS 02/28/19 [History] Multivit with Iron,Hematinic [[place]] 1 each PO 02/28/19 [History] Vitamin E 400 unit PO QA 02/28/19 [History] Allergy/AdvReac Type Severity Reaction Status Date / Time codeine Allergy Hives Verified 11/05/18 23:12 phenobarbital Allergy Hives Verified 11/05/18 23:12 IVP DYE Allergy Hives Uncoded 11/05/18 23:12 All Systems Reviewed: The remainder of the systems were reviewed and are negative Physical Exam - Constitutional Vitals: Temp Pulse Resp BP Pulse Ox 99.5 F 94 16 127/81 95 03/01/19 21:39 03/01/19 19:45 03/01/19 19:45 03/01/19 19:45 03/01/19 19:45 Results - Labs Result Diagrams: 03/01/19 05:39 03/01/19 05:39 Labs: Abnormal lab results RBC 4.16 M/mcL (4.19-5.50) L 03/01/19 05:39 Hgb 12.5 g/dL (12.9-16.9) L 03/01/19 05:39 Hct 36.8 % (37.5-50.1) L 03/01/19 05:39 MPV 9.3 fL (9.4-12.4) L 03/01/19 05:39 Carbon Dioxide 21 mEq/L (23-29) L 03/01/19 05:39 Glucose 106 mg/dL (70-105) H 03/01/19 05:39 POC Glucose 118 mg/dL (70-99) H 03/01/19 16:23 H & H 03/01/19 Range/Units 05:39 Hgb 12.5 L (12.9-16.9) g/dL Hct 36.8 L (37.5-50.1) % All other labs normal. - Diagnostic results Wrist/Hand x-ray: image reviewed Pelvic AP x-ray: image reviewed Ankle/Foot x-ray: image reviewed Consult Discharge Plan - Plan Referrals: Santa Niño MD [Primary Care Provider] -
[2019-03-02] MEDS: *HR* OxyCODONE Immed Rel 5 MG TABLET PO PRN ×2 (03:48→13:30)
[2019-03-02 04:58] LABS: BUN/Creatinine Ratio 13 (6-26); Blood Urea Nitrogen 12 mg/dL (6-20); Carbon Dioxide 22 mEq/L (23-29); Chloride 105 mEq/L (98-107); Glucose 98 mg/dL (70-105); Magnesium 1.8 mg/dL (1.6-2.6); Osmolality,Calculated 282 (280-300); Potassium 3.6 mEq/L (3.5-5.1); Sodium 136 mEq/L (136-145); eGFR For African Americans > 60 (> 60); eGFR For Non-African Americans > 60 (> 60)
[2019-03-02 05:45] LABS: Basophils % 0.3 %; Eosinophils # 0.2 K/mcL (0.0-0.6); Eosinophils % 3.3 %; Hematocrit 37.9 % (37.5-50.1); Hemoglobin 13.2 g/dL (12.9-16.9); Immature Granulocytes % 0.3 % (0-4); Lymphocytes # 1.2 K/mcL (0.6-4.6); Lymphocytes % 17.4 %; Mean Corpuscular HGB Conc 34.8 g/dL (31.6-35.5); Mean Corpuscular Hemoglobin 30.6 pg (28.0-33.3); Mean Corpuscular Volume 87.9 fL (83.0-100.0); Mean Platelet Volume 9.3 fL (9.4-12.4); Monocytes # 0.8 K/mcL (0.0-1.3); Monocytes % 11.9 %; Neutrophils # 4.7 K/mcL (1.6-8.9); Platelet Count 177 K/mcL (140-400); Red Blood Count 4.31 M/mcL (4.19-5.50); Red Cell Distribution Width 11.6 % (11.5-14.5); Segmented Neutrophils % 66.8 %
[2019-03-02] MEDS: *HR* Heparin 5,000 UNIT/ML VIAL SQ SCH ×3 (05:45→21:03)
[2019-03-02] MEDS: Metoprolol XL (24 HR) Succ 25 MG TAB.ER.24H PO SCH (10:24)
[2019-03-02] MEDS: Lisinopril 20 MG TABLET PO SCH (10:24)
[2019-03-02] MEDS: Loratadine 10 MG TABLET PO SCH (10:24)
[2019-03-02] MEDS: Perphenazine 2 MG TABLET PO SCH (10:25)
[2019-03-02] MEDS: Vitamin E 200 UNIT (90MG) CAPSULE PO SCH (10:25)
[2019-03-02] MEDS: CLOBAZAM 10 MG PO SCH ×2 (10:25→21:04)
[2019-03-02] MEDS: Aspirin Enteric Coated 81 MG Tablet PO SCH (10:25)
[2019-03-02] MEDS: BRIVARACETAM 50 MG PO SCH ×2 (10:26→21:04)
[2019-03-02] MEDS: CANNABIDIOL PO SCH ×2 (10:26→21:05)
[2019-03-02] MEDS: hydrOXYzine pamoate 25 MG CAPSULE PO SCH ×2 (10:31→21:04)
--- NOTE | 2019-03-02 13:01 | Internal Med Progress Note ---
Hospitalist Progress Note - Encounter Date of Encounter: 03/02/19 Time of Encounter: 12:15 - Subjective Interval History: Mr Sandra had no seizure activities noted per nursing staff, he voided 1.5 L yesterday and has voided total 3.5 L his admission and is -2.5 L. Of note his mother was concern about his urinary voiding yesterday and requested to [facility]. He was seen by orthopedic physician they recommended no surgical intervention and that he could be weightbearing if tolerable. Also recommended a platform walker. GEN: Denies fever, chills or malaise HEENT: Denies headache blurriness, or dysphagia RESP: Denies SOB or cough CV: Denies chest pain or palpitations GI: Denies Nausea, vomiting, diarrhea or constipation Reviewed current in hospital medications with modifications see orders Reviewed Routine labs - Exam Vitals: Temp Pulse Resp BP Pulse Ox 97.8 F 95 18 111/71 93 03/02/19 11:27 03/02/19 11:27 03/02/19 11:27 03/02/19 11:27 03/02/19 11:27 Exam: GENERAL: Not in acute distress answers questions appropriately SKIN: [place] warm acyanotic not jaundice HEART: RRR, no murmurs LUNGS: CTA no wheeze or crackles, overall non labored ABDOMEN; Soft, non tender or distended, BS x 4 normactive EXT: No right LE edema, Pedal pulses 1+, radial pulses 2+, left hand wrapped in Herb, left leg unna boot noted PSYCH: Mood seems depressed and affect appears flat but at baseline - Assessment and Plan (1) History of fall Current Visit: Yes Status: Acute Assessment and Plan: Continue fall precautions, will likely need ECF placement Etiology of his fall still remains unclear, mother claims it was a mechanical fall but she has a stated that he has been having what she describes as the patient becoming atonic and frequent fall since started on CBD oil, patient did suffer some contusion to his face evident on CT of the face, CT of the cervical spine was unremarkable. No head CT was done at the ED will send patient for a head CT given that an MRI cannot be done given his vagal nerve stimulator to help delineate any intracranial abnormality (2) Phalanx fracture, foot Current Visit: Yes Status: Acute Assessment and Plan: patient has an unna boot, patient has quite a large frame would likely need a 2 person assist if he is nonweightbearing as such discussed with his mother that he might need placement at an ECF for rehabilitation and nursing needs. He was seen by the orthopedic physician appreciated input he recommended patient can be weightbearing and could also use a platform walker. Given the patient's history of seizures and recent at[place] this could place patient at Increased risk for falls he will be sent to ECF for rehabilitation was. We will discuss with case management tomorrow (3) Generalized seizures Current Visit: Yes Status: Acute Assessment and Plan: He was seen by the neurologist -history of Catalino-Gastaut syndrome recommended current management, appreciate neurology input. No documented seizure history during his hospital stay so far Patient with seizures since age 5 continues to have seizures while on antiseizure medication per his mom. She stated that his medications have been tweaked over the years and that he recently added CBD on oil and patient has reverted from tonic-clonic seizures to now what she describes as atonic seizur es-patient going limp and slumped to the ground. She maintains that we should not adjust his seizure medications given at his already established at [facility] but she also does not want him transferred to [place] because she cannot drive to [place] in [place] but would still like to spend the weekend with her son. She wants the staff here to know that during his hospital stay he would have seizures as such she wanted to bring his magnets for also manipulative his vagal nerve stimulator. When she was told that this was not feasible given that the staff will not be comfortable manipulative his vagal nerve stimulator and that we should try to transfer [place] she said no. D iscussed with Dayanara the patient's mom will place him on seizure protocol and that will treat any active seizures with lorazepam and Keppra IV on interim she was reluctant but agreed to treatment plan. We will consult neurology for input (4) Hypertension Current Visit: Yes Status: Acute Assessment and Plan: We will continue lisinopril and Toprol (5) GERD (gastroesophageal reflux disease) Current Visit: Yes Status: Acute Assessment and Plan: Continue ranitidine (6) DVT prophylaxis Current Visit: Yes Status: Acute Assessment and Plan: Heparin per protocol (7) Diabetes Current Visit: Yes Status: Acute Assessment and Plan: Although he is not on any diabetic medication review of his problem list does have diabetes we will obtain A1c 5.3. Patient is not diabetic we will discontinue insulin protocol, BMP and glucose today was 105 - Time Spent with Patient Total time spent is greater than 50% in coordination of care (as documented) at patient's floor/unit and/or counseling patient: Internal Medicine: Result - Labs CBC & Chem 7: 03/02/19 05:06 03/02/19 04:00 Labs: Short CBC 03/02/19 Range/Units 05:06 WBC 7.0 (4.3-11.1) K/mcL Hgb 13.2 (12.9-16.9) g/dL Hct 37.9 (37.5-50.1) % Plt Count 177 (140-400) K/mcL Neutrophils # 4.7 (1.6-8.9) K/mcL BMP 03/02/19 04:00 Sodium 136 Potassium 3.6 Chloride 105 Carbon Dioxide 22 L BUN 12 Creatinine 0.89 Glucose 98 Calcium 9.0 - Impressions Impressions Chest X-Ray 02/28/19 10:10 IMPRESSION: No acute process. D/ / 02/28/2019 11:11:56 Tariq Person MD / malachi Interpreting Provider: Tariq Person MD Hand X-Ray 02/28/19 10:12 IMPRESSION: No acute fracture or dislocation. Suspected vascular channel, 5th mid metacarpal diaphysis. D/ / 02/28/2019 11:12:53 Tariq Person MD / malachi Interpreting Provider: Tariq Person MD Wrist X-Ray 02/28/19 10:12 IMPRESSION: No acute fracture or dislocation. D/ / 02/28/2019 11:13:31 Tariq Person MD / malachi Interpreting Provider: Tariq Person MD Consult Discharge Plan - Plan Referrals: Santa Niño MD [Primary Care Provider] - (Appointment has been requested. ) (2) Phalanx fracture, foot Qualifiers: Encounter type: initial encounter Toe: great toe Fracture type: closed Phalanx: proximal Fracture alignment: nondisplaced Laterality: left Qualified Code(s): S92.415A - Nondisplaced fracture of proximal phalanx of left great toe, initial encounter for closed fracture (4) Hypertension Qualifiers: Hypertension type: essential hypertension Qualified Code(s): I10 - Essential (primary) hypertension (5) GERD (gastroesophageal reflux disease) Qualifiers: Esophagitis presence: esophagitis presence not specified Qualified Code(s): K21.9 - Gastro-esophageal reflux disease without esophagitis (7) Diabetes Qualifiers: Diabetes mellitus type: type 2 Diabetes mellitus superintendent terminal insulin use: without correction use Diabetes mellitus complication status: without complication Qualified Code(s): E11.9 - Type 2 diabetes mellitus without complications
[2019-03-02] MEDS: Cholecalciferol (D-3) 1,000 UNIT (25MCG) TABLET PO SCH (21:04)
[2019-03-02] MEDS: OLANZapine 10 MG TAB.RAPDIS PO SCH (21:04)
[2019-03-03 04:02] LABS: Basophils % 0.3 %; Eosinophils # 0.3 K/mcL (0.0-0.6); Eosinophils % 5.6 %; Hematocrit 36.1 % (37.5-50.1); Hemoglobin 12.6 g/dL (12.9-16.9); Immature Granulocytes % 0.3 % (0-4); Lymphocytes # 1.4 K/mcL (0.6-4.6); Mean Corpuscular HGB Conc 34.9 g/dL (31.6-35.5); Mean Corpuscular Hemoglobin 30.7 pg (28.0-33.3); Mean Platelet Volume 9.4 fL (9.4-12.4); Monocytes # 0.7 K/mcL (0.0-1.3); Monocytes % 10.7 %; Neutrophils # 3.6 K/mcL (1.6-8.9); Platelet Count 164 K/mcL (140-400); Red Cell Distribution Width 11.8 % (11.5-14.5); Segmented Neutrophils % 60.1 %; White Blood Count 6.1 K/mcL (4.3-11.1)
[2019-03-03 04:21] LABS: BUN/Creatinine Ratio 15 (6-26); Blood Urea Nitrogen 15 mg/dL (6-20); Calcium 9.4 mg/dL (8.6-10.3); Carbon Dioxide 20 mEq/L (23-29); Chloride 105 mEq/L (98-107); Glucose 123 mg/dL (70-105); Magnesium 1.9 mg/dL (1.6-2.6); Osmolality,Calculated 282 (280-300); Potassium 3.8 mEq/L (3.5-5.1); Sodium 135 mEq/L (136-145); eGFR For African Americans > 60 (> 60); eGFR For Non-African Americans > 60 (> 60)
[2019-03-03] MEDS: *HR* Heparin 5,000 UNIT/ML VIAL SQ SCH ×3 (06:03→21:09)
[2019-03-03] MEDS: CANNABIDIOL PO SCH ×2 (09:19→21:00)
[2019-03-03] MEDS: BRIVARACETAM 50 MG PO SCH ×2 (09:20→21:00)
[2019-03-03] MEDS: hydrOXYzine pamoate 25 MG CAPSULE PO SCH ×2 (09:21→20:59)
[2019-03-03] MEDS: Perphenazine 2 MG TABLET PO SCH (09:21)
[2019-03-03] MEDS: Aspirin Enteric Coated 81 MG Tablet PO SCH (09:21)
[2019-03-03] MEDS: Loratadine 10 MG TABLET PO SCH (09:21)
[2019-03-03] MEDS: CLOBAZAM 10 MG PO SCH ×2 (09:21→21:01)
[2019-03-03] MEDS: Lisinopril 20 MG TABLET PO SCH (09:21)
[2019-03-03] MEDS: Vitamin E 200 UNIT (90MG) CAPSULE PO SCH (09:21)
[2019-03-03] MEDS: Metoprolol XL (24 HR) Succ 25 MG TAB.ER.24H PO SCH (09:22)
[2019-03-03] MEDS: Cholecalciferol (D-3) 1,000 UNIT (25MCG) TABLET PO SCH (21:00)
[2019-03-03] MEDS: OLANZapine 10 MG TAB.RAPDIS PO SCH (21:01)
--- NOTE | 2019-03-03 21:47 | Internal Med Progress Note ---
Hospitalist Progress Note - Encounter Date of Encounter: 03/03/19 Time of Encounter: 09:25 - Subjective Interval History: Mr. Sandra is being considered for placement to ECF he can be weightbearing, he reports pain is tolerable GEN: Denies fever, chills or malaise HEENT: Denies headache blurriness, or dysphagia RESP: Denies SOB or cough CV: Denies chest pain or palpitations GI: Denies Nausea, vomiting, diarrhea or constipation Reviewed current in hospital medications with modifications see orders Reviewed Routine labs - Exam Vitals: Temp Pulse Resp BP Pulse Ox 98.1 F 91 16 126/78 96 03/03/19 18:51 03/03/19 18:51 03/03/19 18:51 03/03/19 18:51 03/03/19 18:51 Exam: GENERAL: Not in acute distress alert and oriented to person and place SKIN: [place] warm acyanotic not jaundice HEART: RRR, no murmurs LUNGS: CTA no wheeze or crackles, overall non labored ABDOMEN; Soft, non tender or distended, BS x 4 normactive EXT: No right LE edema, Pedal pulses 1+, radial pulses 2+, left hand wrapped in Herb, left leg unna boot noted PSYCH: Mood seems depressed and affect appears flat but at baseline - Assessment and Plan (1) History of fall Current Visit: Yes Status: Acute Assessment and Plan: Continue fall precautions, case management working on placement Etiology of his fall still remains unclear, mother claims it was a mechanical fall but she has a stated that he has been having what she describes as the patient becoming atonic and frequent fall since started on CBD oil, patient did suffer some contusion to his face evident on CT of the face, CT of the cervical spine was unremarkable. No head CT was done at the ED will send patient for a head CT given that an MRI cannot be done given his vagal nerve stimulator to help delineate any intracranial abnormality (2) Phalanx fracture, foot Current Visit: Yes Status: Acute Assessment and Plan: patient has an unna boot, patient has quite a large frame would likely need a 2 person assist if he is nonweightbearing as such discussed with his mother that he might need placement at an ECF for rehabilitation and nursing needs. He was seen by the orthopedic physician appreciated input he recommended patient can be weightbearing and could also use a platform walker. Given the patient's history of seizures and recent at[place] this could place patient at Increased risk for falls he will be sent to [facility] for rehabilitation was. We will discuss with case management tomorrow (3) Generalized seizures Current Visit: Yes Status: Acute Assessment and Plan: He was seen by the neurologist -history of Catalino-Gastaut syndrome recommended current management, appreciate neurology input. No documented seizure history during his hospital stay so far Patient with seizures since age 5 continues to have seizures while on antiseizure medication per his mom. She stated that his medications have been tweaked over the years and that he recently added CBD on oil and patient has reverted from tonic-clonic seizures to now what she describes as atonic seizures-patient going limp and slumped to the ground. She maintains that we should not adjust his seizure medications given at his already established at [facility] but she also does not want him transferred to [place] because she cannot drive to [place] in [place] but would still like to spend the weekend with her son. She wants the staff here to know that during his hospital stay he would have seizures as such she wanted to bring his magnets for also manipulative his vagal nerve stimulator. When she was told that this was not feasible given that the staff will not be comfortable manipulative his vagal nerve stimulator and that we should try to transfer [place] she said no. Discussed with Dayanara the patient's mom will place him on seizure protocol and that will treat any active seizures with lorazepam and Keppra IV on interim she was reluctant but agreed to treatment plan. We will consult neurology for input (4) Hypertension Current Visit: Yes Status: Acute Assessment and Plan: We will continue lisinopril and Toprol (5) GERD (gastroesophageal reflux disease) Current Visit: Yes Status: Acute Assessment and Plan: Continue ranitidine (6) DVT prophylaxis Current Visit: Yes Status: Acute Assessment and Plan: Heparin per protocol (7) Diabetes Current Visit: Yes Status: Acute Assessment and Plan: Although he is not on any diabetic medication review of his problem list does h ave diabetes we will obtain A1c 5.3. Patient is not diabetic we will discontinue insulin protocol, BMP and glucose today was 105 - Time Spent with Patient Total time spent is greater than 50% in coordination of care (as documented) at patient's floor/unit and/or counseling patient: Internal Medicine: Result - Labs CBC & Chem 7: 03/03/19 03:45 03/03/19 03:45 Labs: Short CBC 03/03/19 Range/Units 03:45 WBC 6.1 (4.3-11.1) K/mcL Hgb 12.6 L (12.9-16.9) g/dL Hct 36.1 L (37.5-50.1) % Plt Count 164 (140-400) K/mcL Neutrophils # 3.6 (1.6-8.9) K/mcL BMP 03/03/19 03:45 Sodium 135 L Potassium 3.8 Chloride 105 Carbon Dioxide 20 L BUN 15 Creatinine 0.99 Glucose 123 H Calcium 9.4 Consult Discharge Plan - Plan Referrals: Santa Niño MD [Primary Care Provider] - (Appointment has been requested. ) (2) Phalanx fracture, foot Qualifiers: Encounter type: initial encounter Toe: great toe Fracture type: closed Phalanx: proximal Fracture alignment: nondisplaced Laterality: left Qualified Code(s): S92.415A - Nondisplaced fracture of proximal phalanx of left great toe, initial encounter for closed fracture (4) Hypertension Qualifiers: Hypertension type: essential hypertension Qualified Code(s): I10 - Essential (primary) hypertension (5) GERD (gastroesophageal reflux disease) Qualifiers: Esophagitis presence: esophagitis presence not specified Qualified Code(s): K21.9 - Gastro-esophageal reflux disease without esophagitis (7) Diabetes Qualifiers: Diabetes mellitus type: type 2 Diabetes mellitus manager terminal insulin use: without fdc use Diabetes mellitus complication status: without complication Qualified Code(s): E11.9 - Type 2 diabetes mellitus without complications
[2019-03-04 02:15] LABS: Basophils % 0.4 %; Eosinophils # 0.4 K/mcL (0.0-0.6); Hematocrit 36.4 % (37.5-50.1); Hemoglobin 12.7 g/dL (12.9-16.9); Immature Granulocytes % 0.1 % (0-4); Lymphocytes # 1.4 K/mcL (0.6-4.6); Lymphocytes % 17.8 %; Mean Corpuscular HGB Conc 34.9 g/dL (31.6-35.5); Mean Corpuscular Hemoglobin 30.3 pg (28.0-33.3); Mean Corpuscular Volume 86.9 fL (83.0-100.0); Mean Platelet Volume 9.5 fL (9.4-12.4); Monocytes # 0.8 K/mcL (0.0-1.3); Monocytes % 10.2 %; Neutrophils # 5.2 K/mcL (1.6-8.9); Platelet Count 186 K/mcL (140-400); Red Blood Count 4.19 M/mcL (4.19-5.50); Red Cell Distribution Width 11.6 % (11.5-14.5); Segmented Neutrophils % 66.5 %; White Blood Count 7.8 K/mcL (4.3-11.1)
[2019-03-04 02:37] LABS: BUN/Creatinine Ratio 15 (6-26); Blood Urea Nitrogen 15 mg/dL (6-20); Calcium 9.1 mg/dL (8.6-10.3); Carbon Dioxide 20 mEq/L (23-29); Chloride 101 mEq/L (98-107); Glucose 104 mg/dL (70-105); Magnesium 1.8 mg/dL (1.6-2.6); Osmolality,Calculated 273 (280-300); Potassium 3.7 mEq/L (3.5-5.1); Sodium 131 mEq/L (136-145); eGFR For African Americans > 60 (> 60); eGFR For Non-African Americans > 60 (> 60)
[2019-03-04] MEDS: *HR* Heparin 5,000 UNIT/ML VIAL SQ SCH ×3 (05:31→21:47)
[2019-03-04] MEDS ORDERED: 0.9 % Sodium Chloride 1,000 ML IVC SCH (08:30)
[2019-03-04] MEDS: CANNABIDIOL PO SCH ×2 (09:02→22:22)
[2019-03-04] MEDS: CLOBAZAM 10 MG PO SCH ×2 (09:03→22:11)
[2019-03-04] MEDS: Perphenazine 2 MG TABLET PO SCH (09:03)
[2019-03-04] MEDS: Vitamin E 200 UNIT (90MG) CAPSULE PO SCH (09:03)
[2019-03-04] MEDS: Lisinopril 20 MG TABLET PO SCH (09:03)
[2019-03-04] MEDS: Metoprolol XL (24 HR) Succ 25 MG TAB.ER.24H PO SCH (09:03)
[2019-03-04] MEDS: hydrOXYzine pamoate 25 MG CAPSULE PO SCH ×2 (09:03→21:39)
[2019-03-04] MEDS: BRIVARACETAM 50 MG PO SCH ×2 (09:03→22:11)
[2019-03-04] MEDS: Loratadine 10 MG TABLET PO SCH (09:03)
[2019-03-04] MEDS: Aspirin Enteric Coated 81 MG Tablet PO SCH (09:03)
[2019-03-04 12:33] LABS: BUN/Creatinine Ratio 15 (6-26); Blood Urea Nitrogen 14 mg/dL (6-20); Calcium 8.9 mg/dL (8.6-10.3); Carbon Dioxide 25 mEq/L (23-29); Chloride 101 mEq/L (98-107); Glucose 117 mg/dL (70-105); Osmolality,Calculated 278 (280-300); Potassium 3.7 mEq/L (3.5-5.1); Sodium 133 mEq/L (136-145); eGFR For African Americans > 60 (> 60); eGFR For Non-African Americans > 60 (> 60)
--- NOTE | 2019-03-04 12:33 | Internal Med Progress Note ---
Hospitalist Progress Note - Encounter Date of Encounter: 03/04/19 Time of Encounter: 08:15 - Subjective Interval History: Seen at bedside. Denies fever, chills, rigors. He denies chest pain or shortness of breath. No other overnight events. Awaiting placement. - Exam Vitals: Temp Pulse Resp BP Pulse Ox 98.6 F 86 15 120/76 96 03/04/19 11:26 03/04/19 11:26 03/04/19 11:03/04/19 11:03/04/19 11:26 Exam: GENERAL: Not in acute distress alert and oriented to person and place SKIN: [place] warm acyanotic not jaundice HEART: RRR, no murmurs LUNGS: CTA no wheeze or crackles, overall non labored ABDOMEN; Soft, non tender or distended, BS x 4 normactive EXT: No right LE edema, Pedal pulses inytact bilaterally, left hand wrapped in Herb, left leg boot noted PSYCH: Mood seems depressed and affect appears flat but at baseline - Assessment and Plan (1) Phalanx fracture, foot Current Visit: Yes Status: Acute Assessment and Plan: CUrrently has unna boot Awaiting placement ot the SNF for physical therpay and rehab CBD oil was applied today as per wishes of mother Pain management (2) History of fall Current Visit: Yes Status: Acute Assessment and Plan: Likley mchanical vs physical deconditoning CT scans unremarkable Fall precautions PT/OT (3) Generalized seizures Current Visit: Yes Status: Acute Assessment and Plan: Continue home meds (4) Diabetes Current Visit: Yes Status: Acute Assessment and Plan: BG levels in reasonable range Not on insulin Hba1c of 5.3 NO interventions (5) Hypertension Current Visit: Yes Status: Acute Assessment and Plan: BP normal COtinue home meds (6) GERD (gastroesophageal reflux disease) Current Visit: Yes Status: Acute (7) DVT prophylaxis Current Visit: Yes Status: Acute Assessment and Plan: Heparin per protocol - Time Spent with Patient Total time spent is greater than 50% in coordination of care (as documented) at patient's floor/unit and/or counseling patient: Internal Medicine: Result - Labs CBC & Chem 7: 03/04/19 01:41 03/04/19 01:41 Labs: Short CBC 03/04/19 Range/Units 01:41 WBC 7.8 (4.3-11.1) K/mcL Hgb 12.7 L (12.9-16.9) g/dL Hct 36.4 L (37.5-50.1) % Plt Count 186 (140-400) K/mcL Neutrophils # 5.2 (1.6-8.9) K/mcL [facility] 03/04/19 01:41 Sodium 131 L Potassium 3.7 Chloride 101 Carbon Dioxide 20 L BUN 15 Creatinine 0.98 Glucose 104 Calcium 9.1 Consult Discharge Plan - Plan Referrals: Santa Niño MD [Primary Care Provider] - (Appointment has been requested. ) (1) Phalanx fracture, foot Qualifiers: Encounter type: initial encounter Toe: great toe Fracture type: closed Phalanx: proximal Fracture alignment: nondisplaced Laterality: left Qualified Code(s): S92.415A - Nondisplaced fracture of proximal phalanx of left great toe, initial encounter for closed fracture (4) Diabetes Qualifiers: Diabetes mellitus type: type 2 Diabetes mellitus superintendent terminal insulin use: without superintendent terminal use Diabetes mellitus complication status: without complication Qualified Code(s): E11.9 - Type 2 diabetes mellitus without complications (5) Hypertension Qualifiers: Hypertension type: essential hypertension Qualified Code(s): I10 - Essential (primary) hypertension (6) GERD (gastroesophageal reflux disease) Qualifiers: Esophagitis presence: esophagitis presence not specified Qualified Code(s): K21.9 - Gastro-esophageal reflux disease without esophagitis
[2019-03-04] MEDS: Cholecalciferol (D-3) 1,000 UNIT (25MCG) TABLET PO SCH (21:38)
[2019-03-04] MEDS: OLANZapine 10 MG TAB.RAPDIS PO SCH (21:38)
[2019-03-04] MEDS: Acetaminophen 325 MG TABLET PO PRN (22:11)
[2019-03-05] MEDS: *HR* Heparin 5,000 UNIT/ML VIAL SQ SCH ×2 (06:24→12:50)
[2019-03-05] MEDS: Metoprolol XL (24 HR) Succ 25 MG TAB.ER.24H PO SCH (09:28)
[2019-03-05] MEDS: CLOBAZAM 10 MG PO SCH (09:29)
[2019-03-05] MEDS: Aspirin Enteric Coated 81 MG Tablet PO SCH (09:29)
[2019-03-05] MEDS: Lisinopril 20 MG TABLET PO SCH (09:29)
[2019-03-05] MEDS: hydrOXYzine pamoate 25 MG CAPSULE PO SCH (09:29)
[2019-03-05] MEDS: Vitamin E 200 UNIT (90MG) CAPSULE PO SCH (09:29)
[2019-03-05] MEDS: Perphenazine 2 MG TABLET PO SCH (09:29)
[2019-03-05] MEDS: BRIVARACETAM 50 MG PO SCH (09:30)
[2019-03-05] MEDS: Loratadine 10 MG TABLET PO SCH (09:38)
[2019-03-05] MEDS: Acetaminophen 325 MG TABLET PO PRN (09:53)
--- NOTE | 2019-03-05 10:08 | Discharge Summary ---
- NOTES TO OUTPATIENT PROVIDER Notes to Outpatient Provider: Came with a fall, daignised with phalanx fracrure. Needs PT/OT Date of Encounter: 03/05/19 Time of Encounter: 08:15 - Discharge Diagnosis (1) Phalanx fracture, foot Priority: Primary Status: Acute Qualifiers: Encounter type: initial encounter Toe: great toe Fracture type: closed Phalanx: proximal Fracture alignment: nondisplaced Laterality: left Qualified Code(s): S92.415A - Nondisplaced fracture of proximal phalanx of left great toe, initial encounter for closed fracture (2) History of fall Priority: Secondary Status: Acute (3) Generalized seizures Priority: Secondary Status: Acute (4) Diabetes Priority: Secondary Status: Acute Qualifiers: Diabetes mellitus type: type 2 Diabetes mellitus jail insulin use: without jail use Diabetes mellitus complication status: without complication Qualified Code(s): E11.9 - Type 2 diabetes mellitus without complications (5) Hypertension Priority: Secondary Status: Acute Qualifiers: Hypertension type: essential hypertension Qualified Code(s): I10 - Essential (primary) hypertension (6) GERD (gastroesophageal reflux disease) Priority: Secondary Status: Acute Qualifiers: Esophagitis presence: esophagitis presence not specified Qualified Code(s): K21.9 - Gastro-esophageal reflux disease without esophagitis (7) DVT prophylaxis Priority: Secondary Status: Acute Hospital course: Mr. Sandra is a 49 year old male with a past medical history significant for anxiety, bipolar disorder, seizure disorder, hypertension, mental retardation, was brought to the hospital after a fall. X-ray of the foot showed first proximal phalanx nondisplaced fracture on the left side. Orthopedics was consulted. Recommended conservative management with follow-up in 3-4 weeks' time. PT/OT recommended intermediate facility for further rehabilitation and nursing needs. Patient had been discharged in stable condition. Patient has history of generalized seizures. He had one episode while he was in the hospital. Episode lasted for only a few minutes, patient reverted back to his normal self. No extra medications were given during that time. Patient is to be continued on his medications for generalized seizure disorder - Time Spent with Patient Total time spent providing and/or coordinating discharge services: 31 minutes Time spent: Greater than 30 minutes - Discharge Medications Prescriptions: New OxyCODONE Immed Rel [Roxicodone 5 MG] 5 mg PO Q6HR PRN 7 Days #20 tablet PRN Reason: Pain Continued HydrOXYzine Pamoate [Vistaril] 25 mg PO BID OLANZapine [Zyprexa] 15 mg PO 2000 Lisinopril [Zestril] 20 mg PO DAILY Perphenazine [Trilafon] 2 mg PO DAILY Tamsulosin 0.4 mg PO HS Cholecalciferol (D-3) [Vitamin D] 1 tab PO HS Cannabidiol (Cbd) Extract [Epidiolex] 10.4 ml PO BID Docusate Sodium [Stool Softener] 100 mg PO BID Atorvastatin [Lipitor] 40 mg PO DAILY@1600 Metoprolol Succinate [Toprol Xl] 25 mg PO DAILY Zonisamide [Zonegran] 400 mg PO 1999 raNITIdine HCl [Ranitidine HCl] 150 mg PO BID Aspirin [Lo-Dose Aspirin EC] 81 mg PO DAILY Loratadine [Allergy Relief] 10 mg PO DAILY Brivaracetam [Briviact] 50 mg PO BID Lacosamide [Vimpat] 200 mg PO BID Magnet 1 each TP DAILY PRN MDD 1 PRN Reason: Seizures Calcium Carbonate [Calcium] 500 mg PO DAILY Montelukast [Singulair] 10 mg PO HS Multivit with Iron,Hematinic [[place]] 1 each PO Vitamin E 400 unit PO QAM Diazepam [Diastat Acudial] 1 each RC DAILY PRN 7 Days #7 kit MDD 1 PRN Reason: Seizures Clobazam [Onfi] 10 mg PO BID 7 Days #14 tablet Home Medications: Aspirin [Lo-Dose Aspirin EC] 81 mg PO DAILY 11/05/18 [History] Atorvastatin [Lipitor] 40 mg PO DAILY@1600 11/05/18 [History] Brivaracetam [Briviact] 50 mg PO BID 11/05/18 [History] Cannabidiol (Cbd) Extract [Epidiolex] 10.4 ml PO BID 11/05/18 [History] Cholecalciferol (D-3) [Vitamin D] 1 tab PO HS 11/05/18 [History] Docusate Sodium [Stool Softener] 100 mg PO BID 11/05/18 [History] HydrOXYzine Pamoate [Vistaril] 25 mg PO BID 11/05/18 [History] Lacosamide [Vimpat] 200 mg PO BID 11/05/18 [History] Lisinopril [Zestril] 20 mg PO DAILY 11/05/18 [History] Loratadine [Allergy Relief] 10 mg PO DAILY 11/05/18 [History] Magnet 1 each TP DAILY PRN MDD 1 11/05/18 [History] Metoprolol Succinate [Toprol Xl] 25 mg PO DAILY 11/05/18 [History] OLANZapine [Zyprexa] 15 mg PO 199911/05/18 [History] Perphenazine [Trilafon] 2 mg PO DAILY 11/05/18 [History] Tamsulosin 0.4 mg PO HS 11/05/18 [History] Zonisamide [Zonegran] 400 mg PO 199911/05/18 [History] raNITIdine HCl [Ranitidine HCl] 150 mg PO BID 11/05/18 [History] Calcium Carbonate [Calcium] 500 mg PO DAILY 02/28/19 [History] Montelukast [Singulair] 10 mg PO HS 02/28/19 [History] Multivit with Iron,Hematinic [[place]] 1 each PO 02/28/19 [History] Vitamin E 400 unit PO QAM 02/28/19 [History] Clobazam [Onfi] 10 mg PO BID 7 Days #14 tablet 03/05/19 [Rx] Diazepam [Diastat Acudial] 1 each RC DAILY PRN 7 Days #7 kit MDD 1 03/05/19 [Rx] OxyCODONE Immed Rel [Roxicodone 5 MG] 5 mg PO Q6HR PRN 7 Days #20 tablet 03/05/19 [Rx] Allergies/Adverse Reactions: Allergy/AdvReac Type Severity Reaction Status Date / Time codeine Allergy Hives Verified 11/05/18 23:12 phenobarbital Allergy Hives Verified 11/05/18 23:12 IVP DYE Allergy Hives Uncoded 11/05/18 23:12 Date of admission: 03/04/19 11:33 Primary care physician: Santa Niño Consults: 02/28/19 12:46 Consult to Orthopedic Surgery [CONS] Stat Consulting Provider: Adolfo Gary Reason for Consult: Fracture of left hand, left great toe Time Notified: 12:47 Call Completed: No 02/28/19 14:13 Consult to Occupational Therapy [CONS] Routine Comment: Evaluate, develop and implement POC Reason for Consult: Status post fall Does patient have active BEDREST order?: No Is patient medically & hemodynamically stable?: Yes Consult to Physical Therapy [CONS] Routine Comment: Evaluate, develop and implement POC Reason for Consult: Status post fall Does patient have active BEDREST order?: No Is patient medically & hemodynamically stable?: Yes Consult to [employer] [CONS] Routine Reason for SW Consult: assisted patient status post fall possible fracture of the left foot will need ECF placement 02/28/19 15:08 Consult to Neurology [CONS] Routine Consulting Provider: Neurology [facility] Reason for Consult: History of seizures since age 5 on antiseizures med Call Completed: No - Constitutional Vitals: Temp Pulse Resp BP Pulse Ox 98.5 F 95 14 117/73 95 03/05/19 07:07 03/05/19 07:07 03/05/19 07:07 03/05/19 07:07 03/05/19 07:07 Exam: GENERAL: Not in acute distress alert and oriented to person and place SKIN: [place] warm acyanotic not jaundice HEART: RRR, no murmurs LUNGS: CTA no wheeze or crackles, overall non labored ABDOMEN; Soft, non tender or distended, BS x 4 normactive EXT: No right LE edema, Pedal pulses inytact bilaterally, left hand wrapped in Herb, left leg boot noted PSYCH: Mood seems depressed and affect appears flat but at baseline - Patient Status Disposition: Transfer SNF Condition: Good Functional capacity at discharge: uses cane/walker Overall status at discharge: patient is progressing back to baseline - Discharge Instructions Follow Up With: Santa Niño MD [Primary Care Provider] - (Appointment has been requested. ) Forms: ED Satisfaction Letter - Diet and Activity Activity: as per physical therapy, increase activity as tolerated Diet: advance to your usual diet
--- NOTE | 2019-03-05 10:14 | Physician Discharge Referral ---
ExtendedCare Referral Info Provider in Charge after Transfer: PCP Institutional Level of Care: Skilled - Diagnosis (1) Phalanx fracture, foot Priority: Primary Status: Acute (2) History of fall Priority: Secondary Status: Acute (3) Generalized seizures Priority: Secondary Status: Acute (4) Diabetes Priority: Secondary Status: Acute (5) Hypertension Priority: Secondary Status: Acute (6) GERD (gastroesophageal reflux disease) Priority: Secondary Status: Acute (7) DVT prophylaxis Priority: Secondary Status: Acute - Transfer Medications Prescriptions: Diazepam [Diastat Acudial] 1 each RC DAILY PRN 7 Days #7 kit MDD 1 PRN Reason: Seizures Clobazam [Onfi] 10 mg PO BID 7 Days #14 tablet OxyCODONE Immed Rel [Roxicodone 5 MG] 5 mg PO Q6HR PRN 7 Days #20 tablet PRN Reason: Pain Home Medications: Aspirin [Lo-Dose Aspirin EC] 81 mg PO DAILY 11/05/18 [History] Atorvastatin [Lipitor] 40 mg PO DAILY@1600 11/05/18 [History] Brivaracetam [Briviact] 50 mg PO BID 11/05/18 [History] Cannabidiol (Cbd) Extract [Epidiolex] 10.4 ml PO BID 11/05/18 [History] Cholecalciferol (D-3) [Vitamin D] 1 tab PO HS 11/05/18 [History] Docusate Sodium [Stool Softener] 100 mg PO BID 11/05/18 [History] HydrOXYzine Pamoate [Vistaril] 25 mg PO BID 11/05/18 [History] Lacosamide [Vimpat] 200 mg PO BID 11/05/18 [History] Lisinopril [Zestril] 20 mg PO DAILY 11/05/18 [History] Loratadine [Allergy Relief] 10 mg PO DAILY 11/05/18 [History] Magnet 1 each TP DAILY PRN MDD 1 11/05/18 [History] Metoprolol Succinate [Toprol Xl] 25 mg PO DAILY 11/05/18 [History] OLANZapine [Zyprexa] 15 mg PO 2000 11/05/18 [History] Perphenazine [Trilafon] 2 mg PO DAILY 11/05/18 [History] Tamsulosin 0.4 mg PO HS 11/05/18 [History] Zonisamide [Zonegran] 400 mg PO 199911/05/18 [History] raNITIdine HCl [Ranitidine HCl] 150 mg PO BID 11/05/18 [History] Calcium Carbonate [Calcium] 500 mg PO DAILY 02/28/19 [History] Montelukast [Singulair] 10 mg PO HS 02/28/19 [History] Multivit with Iron,Hematinic [[place]] 1 each PO 02/28/19 [History] Vitamin E 400 unit PO QAM 02/28/19 [History] Clobazam [Onfi] 10 mg PO BID 7 Days #14 tablet 03/05/19 [Rx] Diazepam [Diastat Acudial] 1 each RC DAILY PRN 7 Days #7 kit MDD 1 03/05/19 [Rx] OxyCODONE Immed Rel [Roxicodone 5 MG] 5 mg PO Q6HR PRN 7 Days #20 tablet 03/05/19 [Rx] Allergies/Adverse Reactions: Allergy/AdvReac Type Severity Reaction Status Date / Time codeine Allergy Hives Verified 11/05/18 23:12 phenobarbital Allergy Hives Verified 11/05/18 23:12 IVP DYE Allergy Hives Uncoded 11/05/18 23:12 - Respiratory Orders Smoking Cessation: Smoking cessation has been advised. For more information, call the [place] Tobacco Quit Line at 2-173-ONYNNOW. CERTIFICATION: I certify that the transfer of the above named patient to an Extended Care Facility is necessary for the continuing treatment of the diagnosis listed. The above information is true and accurate reflection of patient's current condition. Confidential - Redisclosure prohibited without a patient's written consent.
[2019-03-05 11:39] VITALS: BP 114/72
== END 2019-03-05 16:07 | DRG 563 ==
LOC: 3BNU 10:06 → EMEROOARM 10:06 → SUATTDRO 13:26 → 3BNU 14:10
PROVIDERS: ADMIT Pharmacist; ATTEND Internal Medicine